=== PATIENT | male | born 1950 | race Caucasian/White ===

== ENCOUNTER 2017-12-29 01:10 | Inpatient (IN) | payer OTHER ==
[~2017-12-29] VITALS: Ht 185.4 cm; Wt 121.1 kg
[~2017-12-29 01:10] MED LIST: ATORVASTATIN CA40 M1 PO; OMEPRAZOLE40 M1 PO
--- NOTE | 2017-12-29 08:29 | Admission Core Measures ---
Acute Coronary Syndrome (CM) ACS Core Measures Acute Coronary Syndrome Diagnosis No Congestive Heart Failure (NEW) CHF Core Measures Congestive Heart Failure Diagnosis No Cerebrovascular Accident CVA Core Measures CVA/TIA Diagnosis No Venous Thromboembolism VTE Core Annamaria (View Protocol) VTE Risk Factors Surgery No Mechanical VTE Prophylaxis d/t N/A MechProphylax Ordered No VTE Pharm Prophylaxis d/t NA PharmProphylax ordered Problem List As ranked by this Provider includes Assessment & Plan 1. Unilateral primary osteoarthritis, right hip HOME MEDS Home Med List Atorvastatin Calcium 40 MG TABLET 1 TAB PO DAILY CHOLESTEROL (Reported) Omeprazole 40 MG CAPSULE.DR 1 CAP PO DAILY GI (Reported)
--- NOTE | 2017-12-29 08:36 | Surg Short-stay <48hrs Dis Sum ---
Visit Information Visit Dates Admission Date: 12/29/17 Discharge Date: 12/29/17 Surgical Short Stay DC Summary Admission Diagnosis: Right hip OA Final Diagnosis: IRWIN s/p R NAOMY Procedure(s): Right total hip arthroplasty Summary/Significant Findings: Patient was admitted to the hospital for an elective right total hip replacement. The procedure was tolerated well and patient was transferred to a general surgical floor. Diet was advanced and tolerated. The patient was evaluated and treated by physical therapy. At the time of hospital discharge, vital signs were stable, neurovascular status was intact and pain was controlled with the use of oral pain medications. Condition at Discharge: Stable Discharge Disposition: home health services Discharge instructions provided to patient/family: Yes Post discharge follow-up plan: [address] Null
--- NOTE | 2017-12-29 08:38 | Patient Discharge Instructions ---
Discharge Instructions General Discharge Information You were seen/treated for: Right hip osteoarthritis You had these procedures: Right total hip arthroplasty Watch for these problems: Increasing pain despite the use of pain medication Increasing redness, warmth or swelling Drainage of any type from incision Inability to bear weight on operative leg Persistent nausea and vomiting Fever greater than 101.5 degrees Do not soak the wound: Yes No bath, but you may shower: Yes Other wound care: Please keep wound clean and dry. No ointments or lotions of any type on or near incision at any time. No exceptions. Your dressing will be changed by your nurse on the second day after your surgery. Daily dry dressing changes are recommended each day thereafter. Do not soak your wound in a bath or pool at any time until otherwise indicated by your surgeon. You may shower, please dry wound immediately after shower with a clean towel. Special Instructions: Aspirin: You are taking this medication to help prevent blood clot formation. Please take with food to protect your stomach lining. Please take as directed. Constipation: Pain medication can cause constipation. Your surgeon has recommended that you take Colace and miralax each day. You may discontinue this medication if you develop loose stool or diarrhea. Activity Full Activity/No Limits: No Activity Self Limited: Yes Activity Limited to: Weight bear as tolerated (with rolling walker as needed) Acute Coronary Syndrome Inclusion Criteria At DC or during hospital stay patient has or had the following: ACS DIAGNOSIS No Discharge Core Measures Meds if any: Prescribed or Continued at Discharge Meds if any: NOT Prescribed or Continued at Discharge Congestive Heart Failure Inclusion Criteria At DC or during hospital stay patient has or had the following: CHF DIAGNOSIS No Discharge Core Measures Meds if any: Prescribed or Continued at Discharge Meds if any: NOT Prescribed or Continued at Discharge Cerebrovascular accident Inclusion Criteria At DC or during hospital stay patient has or had the following: CVA/TIA Diagnosis No Discharge Core Measures Meds if any: Prescribed or Continued at Discharge Meds if any: NOT Prescribed or Continued at Discharge Venous thromboembolism Inclusion Criteria VTE Diagnosis No VTE Type NONE VTE Confirmed by (Test) NONE Discharge Core Measures - Per Current guidelines, there needs to be overlap - treatment for the first 5 days of Warfarin therapy. - If discharged on Warfarin prior to 5 days of - overlap therapy, the patient will need to be - assessed for post discharge needs including - *Post discharge parental anticoagulation - *Warfarin and/or parental anticoagulation education - *Follow up date to check INR post discharge At least 5 days overlap therapy as Inpatient No Meds if any: Prescribed or Continued at Discharge Note: Overlap Therapy is Warfarin and Anticoagulant Meds if any: NOT Prescribed or Continued at Discharge
[2017-12-29] MEDS ORDERED: ASPIRIN EC81 M1 PO (08:52)
[2017-12-29] MEDS ORDERED: MS CONTIN15 M3 PO (08:52)
[2017-12-29] MEDS ORDERED: MIRALAX17 G1 PO (08:52)
[2017-12-29] MEDS ORDERED: INDOMETHACIN25 M1 PO (08:52)
[2017-12-29] MEDS ORDERED: COLACE100 M1 PO (08:52)
[2017-12-29] MEDS ORDERED: DILAUDID2 M1 PO (08:52)
--- NOTE | 2017-12-29 11:51 | RADIOLOGY REPORT ---
EXAMINATION: XR HIP, RIGHT CLINICAL INFORMATION: Total hip replacement COMPARISON: None TECHNIQUE: Two views of the right hip. FINDINGS: The femoral head prosthesis is well centered within the acetabular cup which has lateral version of approximately 45 degrees. The acetabular cup is suboptimally visualized on the lateral view. The cup anteversion is estimated to be approximately 35 degrees. The femoral stem is well-positioned within the medullary cavity of the proximal femoral diaphysis; the tip of the femoral stem is excluded from the [id number] on the crosstable lateral radiograph. No evidence of periprosthetic fracture. There is postoperative soft tissue gas around the hip. IMPRESSION: Status post right total hip arthroplasty. No acute periprosthetic fracture. Position and alignment of components is excellent on the AP view. Note that the acetabular cup is suboptimally visualized on the crosstable lateral view.
[2017-12-29 13:25] VITALS: BP 128/72
--- NOTE | 2017-12-29 14:41 | Operative Report ---
Operative/Inv Procedure Report Surgery Date: 12/29/17 Name of Procedure: Right total hip replacement Pre-Operative Diagnosis: Primary right hip DJD Post-Operative Diagnosis: Same Estimated Blood Loss: 300 Surgeon/Regional Sales Coordinator: Tennille DRISCOLL,Darren Pérez Anesthesia: block Operative/Procedure Note Note: Description of Procedure: The patient was taken to the operating room and positively identified. After induction of spinal anesthesia and administration of appropriate pre-operative antibiotics, the patient was positioned supine on the operating room table and all bony prominences were well padded. After performing a surgical timeout, the right lower extremity was prepped and draped in the usual sterile fashion. A direct anterior approach was made to the right hip. The incision was carried sharply through superficial soft tissues to the level of the fascia. Meticulous hemostasis was maintained with Bovie electocautery. The fascia over the tensor fascia teressa muscle was opened sharply and the interval between the TFL and the sartorius was entered bluntly taking care to stay lateral to the lateral femoral cutaneous nerve. Retractors were placed around the femoral neck and the pericapsular fat was identified. The ascending branches of the lateral femoral circumflex vessels were identified and carefully coagulated. The pericapsular fat and anterior capsule were then resected. A napkin ring osteotomy was performed and the femoral head was removed without difficulty. Attention was then turned to the acetabulum. After appropriate placement of retractors, the acetabulum was exposed. Soft tissue was cleaned from the acetabular margin and notch. Overhanging osteophytes were removed and the teardrop was exposed. The acetabulum was then sequentially reamed to accept a 66 mm Carri Tritanium hemispherical solid shell. This was impacted into place in the appropriate position and fitted with a 36 mm Trident X3 zero degree polyethylene insert. Attention was then turned to the femur. After performing the appropriate ligament releases, the proximal femur was exposed. It was then sequentially broached to accept a size 6 Carri Accolade 2 stem. This was trialed for leg length and stability. The trial component was removed and the final component was impacted into place. The trunnion was carefully cleaned and fit with a 36 mm, -2.5 Biolox delta ceramic femoral head. The hip was reduced and put through a full range of motion and found to be stable. The articular space was then irrigated with sterile saline. The periarticular soft tissues were infilitrated with Marcaine. The fascial layer was closed with interrupted #1 vicryl suture and the skin was re-approximated with interrupted 2 -0 vicryl. The skin was closed with a running 3-0 V-Lock suture. Steri-strips and a sterile dressing were applied. The patient was awakened and taken to the recovery room in satisfactory condition.
--- NOTE | 2017-12-29 14:55 | PN- Student ---
Subjective Subjective: Pt states he is feeling well after surgery with 2/10 pain to his right hip. He denies any numbness or tingling to his lower extremities. Was up and walking around with PT earlier in the day and was able to complete a flight of stairs. Has not been able to void yet. Denies any CP, SOB, difficulty breathing, abdominal pain, nausea or vomiting. Objective Objective: Physical Exam Vitals: See EMR General: Middle aged male, sitting up in chair, NAD, eating lunch. Cadiac: Regular rate and rhythm. S1 and S2 sounds appreciated. No murmurs, rubs of gallops appreciated. Pulmonary: Symmetric rise and fall of the chest appreciated. Breath sounds heard in anterior and posterior lung blackmon with no rhonchi, wheezes, or rales heard. Abdomen: Soft, non-tender to palpation, non-distended. Extremities: Gross motor function intact. Plantar and dorsiflexion elicited with 5/5 strength. Sensation is intact and equal in both feet. Bilateral calves are soft and non-tender to palpation with no erythema or edema noted. Posterior tibialis and dorsalis pedis pulses were palpable. Assessment/Plan Assessment: Pt is a 67 year old male POD#0 s/p right anterior total hip replacement for primary osteoarthritis, with a past medical history including hyperlipidemia and GERD. Pt has not voided yet. Post-operative pain is well controlled and pt is cleared for home by PT. Plan: P: Continue with oral pain control as needed with MS Contin and hydromorphone. Continue to monitor patient's urine output to ensure he is able to void. Will follow up with am labs. Cefazolin 2 gm to be given at 1600. Indomethacin 25 mg TID x 10 days to be used for prevention of heterotropic ossification. Aspirin 81 mg BID for DVT prophylaxis. Miralax and Colace for bowel regimen. Continue with home meds including, Atorvastatin 40 mg QD and Omeprazole 40 mg QD. Regular diet as tolerated. PT has cleared patient for home. Pt will need to continue with PT at home or as an oupatient. Will continue with d/c planning. Will discuss with attending and surgical PAs.
== END 2017-12-29 16:43 | disposition home health service (06) | DRG 470 ==
LOC: SDA 01:10 → ENRESERV 12:27 → ENTRNSPT 12:51 → EDTRNSPT 13:14 → EDTRNSPTSTS 13:14 → CMPTRNSPT 13:25 → 2NB 13:26 → ENTRNSPT 16:04 → EDTRNSPTSTS 16:23 → EDTRNSPT 16:23 → 2NB 16:43 → CMPTRNSPT 16:55
PROC: 0SR904A Replacement of Right Hip Joint with Ceramic on Polyethylene Synthetic Substitute, Uncemented, Open Approach (ICD-10-PCS; principal; 2017-12-29)
DX: M16.11 Unilateral primary osteoarthritis, right hip (principal); E78.5 Hyperlipidemia, unspecified; K21.9 Gastro-esophageal reflux disease without esophagitis; Z90.49 Acquired absence of other specified parts of digestive tract
CPT/HCPCS: 2NBSP; 73502-RT; 97110-GO; 97116-GO; 97161-GP; J0131; J0690; J0735; J2405; J7042